=== PATIENT | male | born 1985 | race Hispanic/Latino ===

== ENCOUNTER 2025-09-16 22:50 | Emergency (ER) | payer OTHER, SELFPAY ==
[2025-09-16 23:11] VITALS: BP 121/74
--- NOTE | 2025-09-17 02:09 | ED.SKININJ ---
HPI-Injury
General
Chief Complaint: Eye Problems
Source: patient
Time Seen by Provider: 09/17/25 02:01
Nursing documentation reviewed up to this point in time: agreed with
History of Present Illness-Injury
Initial Injury comments:
40-year-old male at home earlier today was cutting wood and thinks some sawdust got into his right eye. He was wearing sunglasses at the time. He has tearing and redness and foreign body sensation of the right eye
Past History
Past History
ED Past Medical History: None
ED Past Surgical History: None
Social History
Tobacco: Non-smoker
Alcohol: None
Living: with family
Employment: Employed
Review of Systems
Review of Systems
Allergies reviewed?: Yes
All Other Systems: ROS reviewed and negative except as documented in HPI and ROS
Phy Exam
Physical Exam
Physical Exam:
PHYSICAL EXAMINATION:
General: no apparent distress, not acutely ill
Neuro: alert and oriented.
Psychiatric: well kept. interactive and cooperative
Musculoskeletal: Moves with ease
Skin: Warm, pink.
Eye Exam
Eye Exam: PERRL, EOMI, globe normal, visual reyes normal and other (R eye conjunctiva injected with watery discharge, lid everted, no FB, fluorescein stain reveals superficial corneal abrasion between 1 and 2 o'clock. )
Able to obtain acuity?: Yes
Right 20/: 20
Left 20/: 20
Both 20/: 20
Refraction?: No
Course
Orders/Labs/Results
Orders:
Orders
09/17/25 02:11
Visual Acuity- Treatment ONCE
09/17/25 02:33
Gentamicin [Genoptic 0.3% Eye Drops] See Dose Instructions OPHTH NOW STA
Vital Signs
Initial and Last Documented VS:
Initial Vital Signs
Temp Pulse Resp BP Pulse Ox
98.9 F 61 20 121/74 98
09/16/25 23:11 09/16/25 23:11 09/16/25 23:11 09/16/25 23:11 09/16/25 23:11
Last Documented Vital Signs
Temp Pulse Resp BP Pulse Ox
98.9 F 54 18 96/68 98
09/16/25 23:11 09/17/25 02:48 09/17/25 02:48 09/17/25 02:48 09/17/25 02:48
MDM/Problems Addressed
MDM/Problems Addressed:
40-year-old male at home earlier today was cutting wood and thinks some sawdust got into his right eye. He was wearing sunglasses at the time. He has tearing and redness and foreign body sensation of the right eye
*Pulse Oximetry
SaO2: 98
Oxygen Mode of Delivery: Room air
Patient hypoxic: not evaluated
*Critical Care Note
Total Time (30-74mins, 75-104mins- exclusive of procedures): Not Applicable
ED Attending Note
-
Portions of this chart may have been created with voice recognition software.� Occasional wrong word or��sound alike� substitutions may have occurred due to the inherent limitations of voice recognition software.
Discharge Plan
Departure
Patient Disposition: Home (Routine Discharge)
Date of Disposition: 09/17/25
Time of Disposition: 02:34
Patient with high blood pressure during this ER visit?: No
Condition: Good
Discharge Problem:
Abrasion of right cornea
Instructions: How to Use Eye Drops
Referrals:
Mariaelena Wilkins MD [Active, Ophthalmology] - Call in 1-3 days for appt
Activity Restrictions/Additional Instructions:
As we discussed, use the gentamicin eyedrops as follows: 1 to 2 drops in the affected eye 4 times a day for at least 3-5 days, until the eye feels better.
Call the eye doctor Friday for appointment.
Interventions
Interventions:
*Risk Screen - Suicide Last Done: 09/16/25 23:11
*General Assessment Last Done: 09/16/25 23:11
*Neglect/Abuse Screening Last Done: 09/16/25 23:11
*ED- Fall Risk Assessment Last Done: 09/16/25 23:11
*ED COVID-19 Vaccine History Last Done: 09/17/25 02:09
*ED Influenza Vaccine History Last Done: 09/16/25 23:11
*Nursing Disposition Last Done: 09/17/25 02:49
Discharge Date and Time
Discharge Date/Time: 09/17/25 02:52
Print Language: [place]
[2025-09-17] MEDS: GENOPTIC 0.3% EYE DROPS 1 DROP OPHTH (02:40)
[2025-09-17 02:48] VITALS: BP 96/68
== END 2025-09-17 02:52 | disposition home or self-care (01) ==
LOC: EMR 22:50
PROVIDERS: EMERGENCY PHYSICIAN Emergency Medicine
DX: S05.01XA Injury of conjunctiva and corneal abrasion without foreign body, right eye, initial encounter (principal); X58.XXXA Exposure to other specified factors, initial encounter
CPT/HCPCS: 99282